=== PATIENT | male | born 1940 | race Caucasian/White ===

== ENCOUNTER → 2023-03-04 10:33 | Outpatient (CLI) | payer MEDICARE, OTHER, SELFPAY ==
--- NOTE | 2023-03-04 | DI.ECHO.S_ITS ---
[facility]---------+ [facility] +---------+ : : [address] : [place] : : : : [id number] : : : : Phone: [phone]+ Echocardiogram Report + + :Name: STEPHANIE MERCHANT Study Date: 03/04/2023 Height: 63 in : :[facility] ReadingLocation: Weight: 161 lb : : Gender: Male BSA: 1.8 m2 : :: 1940 Age: 82 yrs BP: 141/87 mmHg: :Reason For Study: Chest Pain : :Ordering Physician: Shaista, : :Lisa Performed By: Racheal Bryan : :Referring: LISA NOONAN E : + + Interpretation Summary The ejection fraction is estimated to be 55-60%. Diastolic parameters suggest probable normal left ventricular diastolic function and normal filling pressures. The right ventricle is normal in size and function. No significant valvular abnormalities. Unable to estimate PASP. Procedure: A two-dimensional transthoracic echocardiogram with color flow and Doppler was performed. The study quality was technically difficult. There is no prior echocardiogram noted for this patient. A contrast injection of Definity was performed to improve assessment of LV function. The patient was in normal sinus rhythm during the exam. The patient had occasional PVCs during the exam. Left Ventricle: The left ventricle is normal in size. The ejection fraction is estimated to be 55-60%. Diastolic parameters suggest probable normal left ventricular diastolic function and normal filling pressures. Right Ventricle: The right ventricle is normal in size and function. Atria: The left atrial size is normal. Right atrial size is normal. There is no Doppler evidence for an interatrial shunt. Mitral Valve: The mitral valve is normal. There is no mitral valve stenosis. There is trace mitral regurgitation. Aortic Valve: The aortic valve is trileaflet. There is mild aortic valve sclerosis. The aortic valve opens well. There is no aortic valve stenosis. No aortic regurgitation is present. Tricuspid Valve: The tricuspid valve is normal. There is no tricuspid stenosis. There is trace tricuspid regurgitation. Pulmonary artery pressures cannot be estimated because of the lack of a measurable TR jet velocity. Pulmonic Valve: The pulmonic valve leaflets are thin and pliable; valve motion is normal. There is no pulmonic valvular stenosis. There is trace pulmonic regurgitation. Great Vessels: The aortic root is normal size. The ascending aorta is normal in size. The pulmonary artery is normal size. The IVC is of normal diameter and collapses greater than 50% with a sniff. This suggests a low right atrial pressure of 3 mm Hg. Pericardium/ Pleura There is no pericardial effusion. There is no pleural effusion. MMode/2D Measurements & Calculations LVIDd: 3.9 cm LVOT diam: 2.2 cm LVIDs: 2.8 cm Ao root diam: 3.1 cm FS: 28.2 % asc Aorta Diam: 3.4 cm IVSd: 0.90 cm LVPWd: 1.1 cm LV ga. diameter/BSA (cm/m^2): 2.2 LV sys. diameter/BSA (cm/m^2): 1.6 LA A2 area: 21.2 cm2 RA area: 19.8 cm2 LA A4 area: 16.6 cm2 IVC diam: 2.0 cm LA length (vol): 5.9 cm LA vol: 51.0 ml LA vol index: 28.9 ml/m2 RVD1 (basal): 4.7 cm Doppler Measurements & Calculations Ao V2 max: 93.5 cm/sec LVOT Max Bridger: 77.8 cm/sec Ao V2 mean: 62.2 cm/sec LV V1 max P.4 mmHg Ao max P.0 mmHg LV V1 VTI: 16.3 cm Ao mean P.0 mmHg MONIKA(I,D): 2.8 cm2 Ao V2 VTI: 22.0 cm MONIKA(V,D): 3.2 cm2 sev ratio: 0.74 MONIKA indexed to BSA (cm^2/m^2): 1.6 MV E max bridger: 90.5 cm/sec TR max bridger: 241.0 cm/sec MV A max bridger: 45.2 cm/sec TR max P.2 mmHg MV E/A: 2.0 PA V2 max: 84.1 cm/sec Med Peak E' Bridger: 10.1 cm/sec PA V2 mean: 59.2 cm/sec E/E' med: 9.0 PA mean P.0 mmHg Lat Peak E' Bridger: 9.8 cm/sec PA pr(Accel): 25.4 mmHg E/E' lat: 9.2 E/e' average: 9.1 MV dec time: 0.17 sec SV(LVOT): 62.0 ml AV VR_phl: 0.83 MONIKA(VTI)/BSA_phl: 1.6 MV P1/2t-pr_phl: 48.0 msec Reading Physician:02:56 PM
--- NOTE | 2023-03-04 | DI.NM.S_ITS ---
PROCEDURE: NM YANIV PERF SPECT R&S PHARM Rest and pharmacological stress myocardial perfusion SPECT with gated imaging and ejection fraction RADIOPHARMACEUTICAL: 12.1 mCi Tc-99m tetrafosmin IV at rest and 25.6 mCi Tc-99m tetrafosmin IV at peak effect of pharmacological stress. [id number]-[id number] was performed. INDICATIONS: Chest pain, unspecified TECHNIQUE: Radiopharmaceutical was injected at peak stress test, and also at rest. SPECT images were obtained. SPECT myocardial perfusion images were displayed in short axis, horizontal long axis, and vertical long axis views. Gated images were reviewed using [employer] software. COMPARISON: None. CARDIAC STRESS: A pharmacologic stress test was performed under the supervision of an attending staff, using an infusion of regadenoson 0.4 mg IV. Hemodynamic data: There is normal blood pressure and heart rate response to pharmacologic stress. Symptoms: The patient denied anginal chest pain. EKG: No diagnostic changes of ischemia; no ectopy. FINDINGS: Raw data: There is good myocardial uptake of radiotracer. No significant motion artifacts. Ybrz-qw-nfjva ratio is 0.28 (normal is less than 0.38 for tetrafosmin tracer). Left ventricle function: Gated images demonstrate normal left ventricular wall thickening. No segmental wall motion abnormalities. No transient ischemic dilation; TID is 0.91 (normal less than 1.3). Left ventricle resting end diastolic volume is 95 mL. Left ventricle stress ejection fraction is 71%; normal range is above 45%. Myocardial perfusion: There is a small size, mild intensity fixed distal anterior and anteroapical wall defect that is better in the stress images compared to rest and nearly resolved in the prone images. No reversible perfusion defects. IMPRESSION: Low risk study. The small size, mild intensity fixed distal anterior and anteroapical wall defect is better in the stress images compared to rest and nearly resolves in prone imaging. Wall motion is normal making this most consistent with attenuation artifact. Normal LV size and function. Dictated by: Lisa Noonan D.O. on 03/05/2023 at 14:30 Approved by: Lisa Noonan D.O. on 03/05/2023 at 14:33
== END ==
PROVIDERS: PCP Internal Medicine; Referring Provider Internal Medicine Cardiovascular Disease; Visit Provider Internal Medicine Cardiovascular Disease
DX: R07.89 Other chest pain (principal)
CPT/HCPCS: 78452; 93017; 93306; A9502; J2785

== ENCOUNTER → 2024-11-09 09:41 | Outpatient (CLI) | payer OTHER, MEDICARE, SELFPAY ==
--- NOTE | 2024-11-09 09:47 | DI.NM.S_ITS ---
PROCEDURE: NM YANIV PERF SPECT R&S PHARM Rest and pharmacological stress myocardial perfusion SPECT with gated imaging and ejection fraction RADIOPHARMACEUTICAL: 8.6 mCi Tc-99m tetrafosmin IV at rest and 26.0 mCi Tc-99m tetrafosmin IV at peak effect of pharmacological stress. [id number] was performed. INDICATIONS: HUTCHINS, CORONARY ARTERY DISEASE PQRS ATTESTATIONS: Measure 322 - Is this imaging test primarily performed on a low-risk surgery patient for preoperative evaluation within 30 days preceding their low-risk non-cardiac surgery? Low-risk surgery is defined as cardiac or myocardial infarction less than 1%, including (but not limited to) endoscopic procedures, superficial procedures, cataract surgery, and excisional breast surgery: Answer: No Measure 323 - Is this imaging test performed primarily for the monitoring of an asymptomatic patient who had percutaneous coronary intervention on the visit date or within 2 years of the visit date? Answer: No Measure 324 - Is this imaging test performed primarily for the initial detection and risk assessment on an asymptomatic, low coronary heart disease patient? Low CHD risk definition = clinicians should consider the maximum number of available patient factors used to estimate risk based on [place] (ATP III criteria), typically age, gender, diabetes, smoking status, and use of blood pressure medication, and integrate age appropriate estimates for missing elements, such as LDL or standard blood pressure. Answer: No TECHNIQUE: Radiopharmaceutical was injected at peak stress test, and also at rest. SPECT images were obtained. SPECT myocardial perfusion images were displayed in short axis, horizontal long axis, and vertical long axis views. Gated images were reviewed using [employer] software. COMPARISON: None. CARDIAC STRESS: A pharmacologic stress test was performed under the supervision of an attending staff, using an infusion of 0.4 mg of Lexiscan. Hemodynamic data: There is normal blood pressure and heart rate response to pharmacologic stress. Symptoms: The patient denied anginal chest pain. Aminophylline: No EKG: No diagnostic changes of ischemia; no ectopy. No changes from underlying atrial fibrillation in terms of dysrhythmias. FINDINGS: Raw data: There is good myocardial uptake of radiotracer. No significant motion artifacts. Ojng-vb-friag ratio is 0.35 (normal is less than 0.38 for tetrafosmin tracer). Left ventricle function: Gated images demonstrate normal left ventricular wall thickening. No segmental wall motion abnormalities. No transient ischemic dilation; TID is 1.02 (normal less than 1.3). Left ventricle resting end diastolic volume was not calculated. Left ventricle stress ejection fraction is 74%; normal range is above 45%. Myocardial perfusion: Rest images had moderate to severe hypoperfusion in the inferior, apical, and distal anterior segments. Stress images demonstrate a slight improvement in these perfusion defects. SDS score of -2. Prone images had no perfusion defects in the inferior and apical segment with only a small area of mild hypoperfusion in the distal anterior segment. With normal gated images, this most likely represents attenuation. IMPRESSION: 1. Negative Lexiscan myocardial perfusion scan for ischemia nor significant infarction. 2. Low risk stress test. 3. No significant changes when compared with previous myocardial perfusion scan. Dictated by: Skyler Bejarano M.D. on 11/09/2024 at 16:59 Approved by: Skyler Bejarano M.D. on 11/09/2024 at 17:03
--- NOTE | 2024-11-09 09:47 | DI.ECHO.S_ITS ---
[facility]+ [facility] : : [address] : [place] : : [id number] : : Phone: [phone] Echocardiogram Report + + :Name: STEPHANIE MERCHANT Study Date: 11/09/2024 Height: 63 in : :[facility] ReadingLocation: Weight: 154 lb : : Gender: Male BSA: 1.7 m2 : :: 1940 Age: 84 yrs BP: 138/76 mmHg: :Reason For Study: DYSPNEA ON EXERTION, CORONARY ARTERY DISEASE : :Ordering Physician: ALFRED, : :LISA Azevedo Performed By: Terrie Man : :Referring: LISA NOONAN : + + Interpretation Summary The patient was in atrial fibrillation with heart rates between 55-68 bpm during the exam. The ejection fraction is estimated to be 55-60%. Diastolic function could not be accurately assessed due to atrial fibrillation. The right ventricle is mildly dilated. The right ventricular systolic function is normal. There is mild biatrial enlargement. There is mild mitral regurgitation. There is mild tricuspid regurgitation. Pulmonary artery pressures cannot be estimated because of the lack of a measurable TR jet velocity but the IVC suggests a CVP of around 3 mmHg. Compared to the prior study 03/04/2023, no major change. Procedure: A two-dimensional transthoracic echocardiogram with color flow and Doppler was performed. The study quality was technically adequate. Comparison is made with the echocardiogram of 03/04/2023. The patient was in atrial fibrillation with heart rates between 55-68 bpm during the exam. Left Ventricle: The left ventricle is normal in size. Proximal septal thickening is noted. The ejection fraction is estimated to be 55-60%. Diastolic function could not be accurately assessed due to atrial fibrillation. Right Ventricle: The right ventricle is mildly dilated. The right ventricular systolic function is normal. Atria: There is mild biatrial enlargement. There is no Doppler evidence for an interatrial shunt. Mitral Valve: The mitral valve leaflets appear mildly thickened, but open well. There is a flat closure plane of the the mitral valve leaflets. There is mild mitral regurgitation. Aortic Valve: The aortic valve is trileaflet. The aortic valve opens well. The aortic valve is mildly calcified. There is no aortic valve stenosis. No aortic regurgitation is present. Tricuspid Valve: The tricuspid valve leaflets are thin and pliable. There is mild tricuspid regurgitation. Pulmonary artery pressures cannot be estimated because of the lack of a measurable TR jet velocity but the IVC suggests a CVP of around 3 mmHg. Pulmonic Valve: The pulmonic valve leaflets are thin and pliable; valve motion is normal. There is mild pulmonic regurgitation. Great Vessels: The aortic root is normal size. The dimensions of the ascending aorta are normal. The IVC is of normal diameter and collapses greater than 50% with a sniff. This suggests a low right atrial pressure of 3 mm Hg. Pericardium/ Pleura There is no pericardial effusion. There is no pleural effusion. MMode/2D Measurements & Calculations LVIDd: 3.9 cm LVOT diam: 2.2 cm LVIDs: 2.7 cm Ao root diam: 3.0 cm FS: 32.0 % asc Aorta Diam: 3.4 cm IVSd: 0.89 cm Ao Arch Diam (Prox Trans): 2.3 cm LVPWd: 0.97 cm LV ga. diameter/BSA (cm/m^2): 2.3 LV sys. diameter/BSA (cm/m^2): 1.5 LA A2 area: 25.7 cm2 RA long axis: 5.6 cm LA A4 area: 15.1 cm2 RA area: 18.7 cm2 LA length (vol): 5.3 cm RA vol: 53.3 ml LA vol: 61.9 ml RA : 30.8 ml/m2 LA vol index: 35.8 ml/m2 IVC diam: 1.4 cm RVD1 (basal): 4.1 cm RVD2 (mid): 3.0 cm TAPSE: 2.0 cm Doppler Measurements & Calculations Ao V2 max: 85.6 cm/sec LVOT Max Bridger: 87.4 cm/sec Ao V2 mean: 58.1 cm/sec LV V1 max P.1 mmHg Ao max P.9 mmHg LV V1 VTI: 17.9 cm Ao mean P.5 mmHg MONIKA(I,D): 3.9 cm2 Ao V2 VTI: 17.6 cm MONIKA(V,D): 3.9 cm2 sev ratio: 1.0 MONIKA indexed to BSA (cm^2/m^2): 2.3 MV E max bridger: 92.0 cm/sec TR max bridger: 239.2 cm/sec MV A max bridger: 1.8 cm/sec TR max P.9 mmHg MV E/A: 51.7 PA V2 max: 77.5 cm/sec Med Peak E' Bridger: 10.0 cm/sec PA V2 mean: 48.4 cm/sec E/E' med: 9.2 PA mean P.1 mmHg Lat Peak E' Bridger: 11.0 cm/sec PA pr(Accel): 32.8 mmHg E/E' lat: 8.4 E/e' average: 8.8 MV dec time: 0.15 sec SV(LVOT): 68.8 ml Reading Physician:02:56 PM
== END ==
PROVIDERS: PCP Internal Medicine; Referring Provider Internal Medicine Cardiovascular Disease; Visit Provider Internal Medicine Cardiovascular Disease
DX: I08.1 Rheumatic disorders of both mitral and tricuspid valves (principal); I25.10 Atherosclerotic heart disease of native coronary artery without angina pectoris; R06.09 Other forms of dyspnea
CPT/HCPCS: 78452; 93017; 93306; A9502; J2785

== ENCOUNTER 2025-08-07 15:04 | Emergency (ER) | payer OTHER, MEDICARE, SELFPAY ==
[2025-08-07 15:56] VITALS: BP 137/73; PULSE 78; RESP 16; TEMP 36.6; BMI 28.3
--- NOTE | 2025-08-07 16:00 | DI.RAD.S_ITS ---
PROCEDURE: XR FINGER RT MIN 2V INDICATIONS: pain/swelling/bruise on thumb TECHNIQUE: AP hand, 2 views of the 1st finger(s) acquired. COMPARISON: None. FINDINGS AND IMPRESSION: No displaced acute fracture or dislocation. 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 Multiple small age-indeterminate, nonacute appearing bone fragments for example adjacent to the ulnar styloid If there is high concern for further derangement, consider MRI evaluation. Dictated by: Dylan Hernandez M.D. on 08/07/2025 at 16:47 Approved by: Dylan Hernandez M.D. on 08/07/2025 at 16:48
[2025-08-07 18:57] VITALS: BP 128/70; PULSE 68; RESP 18; TEMP 36.6; O2SAT 99
--- NOTE | 2025-08-08 14:51 | ED_ITS ---
HPI - Extremity Problem <Rohit Turner PA-C - Last Filed: 08/08/25 14:57> General Chief complaint: Extremity Problem,Nontraumatic Stated complaint: Thumb pn, swollen, noticed it today Time Seen by Provider: 08/07/25 16:54 Source: patient Mode of arrival: Ambulatory History of Present Illness HPI Narrative: 85-year-old male past medical history pacemaker, on Eliquis presents to the ED with 1 day of right thumb bruising and swelling. Patient states that it feels painful when he has to grasp objects with the thumb. No known trauma. No numbness, tingling, weakness. Patient has full range of motion. Related Data Allergies Allergy/AdvReac Type Severity Reaction Status Date / Time latex Allergy Blister Verified 08/07/25 15:57 Sulfa (Sulfonamide Allergy Rash Verified 08/07/25 15:57 Antibiotics) Review of Systems <Rohit Turner PA-C - Last Filed: 08/08/25 14:57> Constitutional Constitutional: Denies chills, Denies fatigue, Denies fever(s), Denies frequent falls, Denies lethargy and Denies weakness Eyes Eyes: Denies change in vision, Denies eye discharge, Denies irritation and Denies loss of vision ENT Ears, Nose, Mouth, and Throat: Denies change in voice, Denies dizziness, Denies neck pain, Denies sore throat and Denies throat swelling Cardiovascular Cardiovascular: Denies chest pain, Denies irregular heart rhythm, Denies lightheadedness, Denies palpitations, Denies dyspnea, Denies dyspnea on exertion and Denies orthopnea Respiratory Respiratory: Denies cough, Denies dyspnea, Denies dyspnea on exertion and Denies wheezing Gastrointestinal Gastrointestinal: Denies abdominal pain, Denies change in bowel habits, Denies diarrhea, Denies nausea and Denies vomiting Musculoskeletal Musculoskeletal: Denies neck pain and Denies numbness Integumentary/Breasts Skin/Breast: Denies pruritus, Denies erythema, Denies rash and Denies wounds Comments: Swelling, bruising on right thumb pad Neurologic Neurologic: Denies behavioral changes, Denies confusion, Denies dizziness, Denies frequent falls, Denies loss of vision, Denies numbness and Denies weakness Psychiatric Psychiatric: Denies anxiety, Denies behavioral changes, Denies confusion, Denies depression, Denies homicidal ideation and Denies suicidal ideation Endocrine Endocrine: Denies fatigue, Denies flushing and Denies palpitations Hematologic/Lymphatic Hematologic/Lymphatic: Denies easy bruising Allergic/Immunologic Allergic/Immunologic: Denies urticaria, Denies throat swelling and Denies wheezing Patient History <Rohit Turner PA-C - Last Filed: 08/08/25 14:57> Social History Smoking Status: Never smoker Smoking Status: Never smoker Exam <Rohit Turner PA-C - Last Filed: 08/08/25 14:57> Narrative Exam Narrative: Const General:?cooperative, healthy appearing and comfortable HENMS Head:?normal to inspection Ears:?hearing grossly normal bilaterally Nose:?external nose normal Face and sinus:?normal facial exam and sinuses nontender Mouth:?oral mucosae normal Throat:?posterior oropharynx normal Eyes General:?appearance normal, both eyes and all related structures Neck Neck:?normal visual inspection and no lymphadenopathy noted Resp Effort & Inspection:?normal respiratory effort Auscultation:?clear to auscultation bilaterally Cardio Rate:?regular rate Rhythm:?regular rhythm Integumentary There is bruising, hematoma noted on the right thumb pad. Hematoma still feels soft and is not rapidly expanding. Full range of motion. Neurovascularly intact Neuro General:?patient alert, patient awake and patient oriented x3 Initial Vital Signs Initial Vital Signs: Vital Signs Temperature 97.9 F 08/07/25 15:56 Pulse Rate 78 08/07/25 15:56 Respiratory Rate 16 08/07/25 15:56 Blood Pressure 137/73 08/07/25 15:56 <Juan Dean MD - Last Filed: 08/26/25 00:19> Initial Vital Signs Initial Vital Signs: Vital Signs Temperature 97.9 F 08/07/25 15:56 Pulse Rate 78 08/07/25 15:56 Respiratory Rate 16 08/07/25 15:56 Blood Pressure 137/73 08/07/25 15:56 MDM - Extremity (Nontraumatic) <Rohit Turner PA-C - Last Filed: 08/08/25 14:57> MDM Narrative Medical decision making narrative: 85-year-old male past medical history pacemaker, on Eliquis presents to the ED with 1 day of right thumb bruising and swelling. X-ray was obtained to rule out fracture/dislocation. X-ray without acute findings. Suspect bleeding from Eliquis use. Not rapidly expanding. Recommend protecting the finger, icing it. Recommend follow-up with PCP as soon as possible. ED return precautions were discussed patient. Patient verbalized understanding. Medical records reviewed: Yes <Juan Dean MD - Last Filed: 08/26/25 00:19> [facility] Narrative Medical decision making narrative: 85-year-old male past medical history pacemaker, on Eliquis presents to the ED with 1 day of right thumb bruising and swelling. X-ray was obtained to rule out fracture/dislocation. X-ray without acute findings. Suspect bleeding from Eliquis use. Not rapidly expanding. Recommend protecting the finger, icing it. Recommend follow-up with PCP as soon as possible. ED return precautions were discussed patient. Patient verbalized understanding. Medical records reviewed: Yes I was present and available for consultation during this patient's visit but was not involved directly with the care. Discharge Plan Departure Patient Disposition: Home Clinical Impression: Hematoma of right thumb Instructions: DI for Hematoma (Bruise) Activity Restrictions/Additional Instructions: You were evaluated in the emergency department today for a right thumb bruise. It appears that you have a hematoma which is a bruise that likely occurred due to Eliquis. Eliquis can make you more prone to bleeding and the fragile vascularity of the thumb could have been affected due to pressure. It is important to keep pressure off the thumb, you may apply ice, take Tylenol. Return to the ED if you have worsening symptoms, numbness, tingling, weakness. Referrals: Karthik Victor MD [Primary Care Provider, Internal Medicine] Stand Alone Forms: Patient Portal/API
== END 2025-08-07 18:57 | disposition home or self-care (01) ==
PROVIDERS: Emergency Provider Student in an Organized Health Care Education/Training Program; PCP Internal Medicine
DX: S60.011A Contusion of right thumb without damage to nail, initial encounter (principal); Z79.01 Long term (current) use of anticoagulants; Z95.0 Presence of cardiac pacemaker
CPT/HCPCS: 73140; 99281